=== PATIENT | female | born 1975 | race Caucasian/White ===

== ENCOUNTER 2020-04-03 04:02 | Outpatient (CLI) | payer MEDICAID, SELFPAY ==
[2020-04-03 09:05] LABS: Abs Immature Grans 0.01 10^3/uL (0.0-0.06); Absolute Basophil Count 0.04 10^3/uL (0.0-0.2); Absolute Eosinophil Count 0.11 10^3/uL (0.0-0.7); Absolute Lymphocyte Count 1.93 10^3/uL (1.2-3.4); Absolute Monocyte Count 0.56 10^3/uL (0.1-0.8); Absolute Neutrophil Count 3.37 10^3/uL (1.2-6.7); Basophils % 0.7; Eosinophils % 1.8; HCT 40.5 % (36.0-46.0); HGB 13.3 g/dL (11.2-15.7); Immature Grans % 0.2; Lymphocytes % 32.1; MCH 29.3 pg (27.0-33.0); MCHC 32.8 % (32.0-36.0); MCV 89.2 fL (80-95); MPV 9.5 fL (8.0-11.0); Monocytes % 9.3; Neutrophils % 55.9; Nucleated RBC 0 %; Platelet Count 318 10^3/uL (130-400); RBC 4.54 10^6/uL (3.93-5.22); RDW 12.5 % (11.7-14.6); RDW-SD 40.7 fL; WBC 6.02 10^3/uL (4.4-10.8)
[2020-04-03 09:19] LABS: Hemoglobin A1C 5.8 % (<5.7)
[2020-04-03 10:19] LABS: ALT 20 U/L (14-59); AST 15 U/L (15-37); Alkaline Phosphatase 47 U/L (46-116); Anion Gap 7.1 mmol/L (3-11); BUN 11 mg/dL (7-18); Bilirubin, Total 0.5 mg/dL (0.2-1.0); CO2 28.9 mmol/L (21.0-32.0); CREATININE 0.76 mg/dL (0.55-1.02); Calcium 9.2 mg/dL (8.5-10.1); Calculated LDL 111 mg/dL (<100); Chloride 107 mmol/L (98-107); Cholesterol 172 mg/dL (<200); Ferritin 40 ng/mL (8-252); Glucose 104 mg/dL (74-106); HDL Cholesterol 52 mg/dL (40-60); Potassium 4.6 mmol/L (3.5-5.1); Sodium 143 mmol/L (136-145); TSH 0.82 uIU/mL (0.36-3.74); Total Protein 7.1 g/dL (6.4-8.2); Triglyceride 47 mg/dL (<150)
[2020-04-03 10:35] LABS: FREE T4 0.98 ng/dL (0.76-1.46)
[2020-04-03 18:01] LABS: T3,Free 3.4 pg/mL (2.8-5.3)
[2020-04-05 04:45] LABS: Vitamin D 25 Total 42.5 ng/ml (30-100)
== END 2020-04-03 04:22 ==
PROVIDERS: PCP Naturopath; Visit Provider Naturopath
DX: R12 Heartburn (principal); K59.09 Other constipation; G47.09 Other insomnia; Z00.00 Encounter for general adult medical examination without abnormal findings
CPT/HCPCS: 36415; 80053; 80061; 82306; 82728; 83036; 84439; 84443; 84481; 85025

== ENCOUNTER 2020-06-07 02:05 | Outpatient (CLI) | payer MEDICAID, SELFPAY ==
--- NOTE | 2020-06-07 14:00 | NS.NUTBLAN_ITS ---
Fabi referred for Medical Nutrition Therapy for prediabetes. Fabi 45 years ol, 5'3 149 lbs, she reports losing 15 lbs in last 6 months following diet from [facility]. Current diet plan very low in carbohydrate. Most recent labs (04/03/20) A1c: 5.8%, Chol: 172, trig 47, LDL: 111, HDL: 52, VitD 42.5. She is lactose intolerant and avoids soy products. Diet mostly a low glycemic diet with emphasis on non starchy vegetables, lean protein and complex carbs. Fabi requested help to make meal plans for more diet variety. Educated Fabi with meal plan of [id number] kcal, 60-80 g protein, 50-60 g fat. Encouraged 30 min exercise daily, MVI and adequate sleep for health. No follow up planned at this time.
== END 2020-06-07 02:25 ==
PROVIDERS: PCP Nurse Practitioner; Visit Provider Dietitian, Registered
DX: R73.03 Prediabetes (principal); E73.9 Lactose intolerance, unspecified; Z71.3 Dietary counseling and surveillance
CPT/HCPCS: 97802

== ENCOUNTER 2020-06-19 00:28 | Outpatient (CLI) | payer MEDICAID, SELFPAY ==
--- NOTE | 2020-06-19 06:45 | DI.US_ITS ---
EXAM: US SOFT TISSUE HEAD OR NECK CLINICAL HISTORY: ? lipoma right lower neck,nodule,r22.1. TECHNIQUE: Ultrasound was performed using standard protocol. COMPARISON: No exams were available for comparison FINDINGS: Sonographic assessment utilizing grayscale and color Doppler imaging was performed and targeted to th e area of clinical concern. Small sonographically benign-appearing lymph nodes are seen in the right neck. They are ovoid and hy poechoic with an echogenic central hilum. The largest measures 0.8 x 0.4 x 0.5 and corresponds to th e palpable abnormality. No suspicious cystic or solid masses are seen in the right neck in the area of concern. IMPRESSION: Benign-appearing lymph nodes seen in the right neck. The largest appears to correspond to the palpab le abnormality. DATA REPOSITORY:
== END 2020-06-19 00:48 ==
PROVIDERS: PCP Nurse Practitioner; Visit Provider Nurse Practitioner
DX: R22.1 Localized swelling, mass and lump, neck (principal)
CPT/HCPCS: 76536

== ENCOUNTER 2020-07-17 00:33 | Outpatient (CLI) | payer MEDICAID, SELFPAY ==
--- NOTE | 2020-07-17 06:45 | DI.MAMMO_ITS ---
EXAM: MG MAMMO SCREENING CLINICAL HISTORY: screening,Z12.39 TECHNIQUE: Bilateral full field digital CC and MLO mammographic images were obtained with 3D tomosyn thesis and utilizing computer aided detection (CAD). COMPARISON: None. FINDINGS: Masses/Architectural Distortion: None seen. Microcalcifications: No suspicious pleomorphic-type are seen. Skin Thickening/Nipple Retraction: None. IMPRESSION: 1. No specific features of malignancy noted. 2. Unless there is more urgent need, screening mammography is recommended, as per [employer] guidelines. BI-RADS Category 1 - Negative Breast Density - Category C - Heterogeneously dense Breast density category C or D implies that the patient has dense breast tissue. Dense breast tissue is very common and is not abnormal but dense breast tissue can make it harder to find cancer on a ma mmogram. Also, dense breast tissue may increase their breast cancer risk. This information about the result of the mammogram report was provided to the patient to raise their awareness. Use this report when you speak with the patient about their risks for breast cancer, which includes their family hist ory. At that time, you may recommend for more screening tests (Ultrasound or MRI) as they might be us eful based on their risk. A negative radiographic report should not delay biopsy if a dominant or clinically suspicious mass is present. Up to ten percent of cancers are not identified on mammography. A negative report may reinforce clinical impression. Adenosis and dense breasts may obscure an underlying neoplasm. False positive reports average 6 to 10%. Patient will receive a letter notifying them of these results.
== END 2020-07-17 00:53 ==
PROVIDERS: PCP Nurse Practitioner; Visit Provider Nurse Practitioner
DX: Z12.31 Encounter for screening mammogram for malignant neoplasm of breast (principal)
CPT/HCPCS: 77063; 77067

== ENCOUNTER 2020-08-10 02:33 | Outpatient (CLI) | payer MEDICAID, SELFPAY ==
[2020-08-10 09:21] LABS: Hemoglobin A1C 5.5 % (<5.7)
[2020-08-10 09:42] LABS: Calculated LDL 110 mg/dL (<100); Cholesterol 176 mg/dL (<200); HDL Cholesterol 59 mg/dL (40-60); Triglyceride 36 mg/dL (<150)
== END 2020-08-10 02:53 ==
PROVIDERS: PCP Nurse Practitioner; Visit Provider Naturopath
DX: R73.09 Other abnormal glucose (principal); R12 Heartburn; K59.09 Other constipation; E78.49 Other hyperlipidemia; B96.81 Helicobacter pylori [H. pylori] as the cause of diseases classified elsewhere; G47.09 Other insomnia
CPT/HCPCS: 36415; 80061; 83036

== ENCOUNTER 2020-12-14 13:57 | Outpatient (REF) | payer MEDICAID, SELFPAY ==
--- NOTE | 2020-12-14 10:30 | PAPFT_PTH ---
PATIENT: Fabi Hicks LOC: AUTUMN U#:[id number] AGE/SX: 45/F ROOM: RE12/14/[address]: Vannesa Gandara, PhD MENTAL HEALTH TECHNICIAN : 1975 BED: DIS: 12/14/2020 SPEC #: [id number] RECD: 12/14/20 16:33 STATUS: NANCY RERobin #: [id number] SASCHA: 12/14/20 10:[address]: Vannesa Gandara DEPT: [facility] Cytology RECD BY: Alisa Herring Tissues: 1 - CX/ENDOCX FOR PAP SMEARS Procedures: PAP THIN PREP/UVM Screening HPV DNA PROBE Comments: [id number]
== END 2020-12-14 13:58 | disposition home or self-care (01) ==
LOC: LBN 13:57
PROVIDERS: PCP Nurse Practitioner; Visit Provider Nurse Practitioner
DX: Z12.4 Encounter for screening for malignant neoplasm of cervix (principal); Z11.51 Encounter for screening for human papillomavirus (HPV)
CPT/HCPCS: 88142; 87624